=== PATIENT | female | born 1980 | race American Indian/Alaskan Native ===

== ENCOUNTER 2020-02-26 15:01 | Emergency (ER) | payer OTHER ==
--- NOTE | 2020-02-26 16:10 | EDM.PDOC ---
ED HPI GENERAL MEDICAL PROBLEM - General Chief Complaint: Genitourinary Problem Stated Complaint: GENITOURINARY PROBLEM Time Seen by Provider: 02/26/20 15:45 Source of Information: Reports: Patient History Limitations: Reports: No Limitations - History of Present Illness INITIAL COMMENTS - FREE TEXT/NARRATIVE: 39-year-old female presents to the ED with severe pruritus and whitish discharge per vagina for the last week. She has tried cdhn-xwq-qwcuwsh medications I believe Monistat 3 with no relief. She states at present it is burning very badly to void. Severe pruritus to the entire vulva with cottage cheeselike discharge per vagina. The symptoms were predated by taking a course of amoxicillin for upper respiratory tract infection. She has had a yeast infection before. She denies any odor to the discharge. She reports that she is monogamous. Onset: Gradual Onset Date: 02/18/20 Duration: Day(s):, Getting Worse Location: Reports: Other (Severe pruritus of the vulva and vagina for 1 week) Quality: Reports: Other (Of ear pruritus with discharge) Severity: Severe Improves with: Reports: None (Ieoj-vun-uzdovpi medications have not helped.) Worsens with: Reports: None Context: Denies: Activity, Exercise, Lifting, Sick Contact, Trauma, Other Associated Symptoms: Reports: Rash. Denies: No Other Symptoms, Confusion, Chest Pain, Cough, cough w sputum, Diaphoresis, Fever/Chills, Headaches, Loss of Appetite, Malaise, Nausea/Vomiting, Seizure, Shortness of Breath, Syncope, Weakness (Vulva) Treatments FEEDER ASSOCIATE: Reports: Other (see below) (Monistat 3.) Lower Abdomen Pain Score (Numeric/FACES): 3 - Related Data Allergies Allergy/AdvReac Type Severity Reaction Status Date / Time No Known Allergies Allergy Verified 02/26/20 15:17 Home Meds: Home Meds Fluconazole [Diflucan] 150 mg PO ASDIRECTED #2 tablet 02/26/20 [Rx] Past Medical History - Infectious Disease History Infectious Disease History: Reports: Chicken Pox - Past Surgical History GI Surgical History: Reports: Cholecystectomy Social & Family History - Family History Family Medical History: Noncontributory - Tobacco Use Smoking Status *Q: Never Smoker - Caffeine Use Caffeine Use: Reports: Soda - Recreational Drug Use Recreational Drug Use: No - Living Situation & Occupation Living situation: Reports: Occupation: Unemployed ED ROS GENERAL - Review of Systems Review Of Systems: See Below Constitutional: Reports: Fatigue (From not sleeping well.). Denies: Fever, Chills, Malaise, Weakness, Weight Loss HEENT: Reports: No Symptoms Respiratory: Reports: No Symptoms Cardiovascular: Reports: No Symptoms Endocrine: Reports: Fatigue GI/Abdominal: Reports: No Symptoms : Reports: Other (Of your pruritus of the entire vulva and vagina with cottage cheese whitish discharge.) Musculoskeletal: Reports: No Symptoms Skin: Reports: No Symptoms Neurological: Reports: No Symptoms ED EXAM, RENAL/ - Physical Exam Exam: See Below Exam Limited By: No Limitations General Appearance: Alert, WD/WN, Moderate Distress, Other (Female) Exam: Other (Examination of the vulva shows that she has it caked with Desitin cream and the tissues are stuck together. There is no redness there are no ulcerations to suggest herpes simplex. There is no significant obvious discharge per vagina. It was impossible to identify white discharge as the Desitin was in the vagina as well as on the vulva.) Extremities: Normal Inspection, Normal Range of Motion, Non-Tender, No Pedal Edema Neurological: Alert, Oriented, CN II-XII Intact, Normal Cognition Psychiatric: Normal Affect, Normal Mood Skin Exam: Warm, Dry, Intact, Normal Color. No: No Rash Course - Vital Signs Last Recorded V/S: Last Vital Signs Temp 36.1 C 02/26/20 15:14 Pulse 65 02/26/20 15:14 Resp 19 02/26/20 15:14 BP 126/80 02/26/20 15:14 Pulse Ox 98 02/26/20 15:14 - Radiology Interpretation Free Text/Narrative:: 39-year-old female presents to the ED with severe pruritus of the vulva stating that there is been whitish cottage cheese discharge off and on for the last week. She tried eqbb-bgm-xnunwli medications I believe Monistat 3 without any relief. At present she has Desitin cream applied to the entire vulva and vagina to help with the itch. I could not identify on examination that there was a definitive candidiasis but by history this is most likely. It predates a 10-day course of amoxicillin for upper respiratory tract infection. She will be placed on Diflucan 150 mg now and repeat in 1 week. Advised her to purchase some Lamisil cream and applied to the vulva and vagina which may give her a li ttle faster relief and soothe the area. Follow-up if not improved in 3 days to 4 days time Departure - Departure Time of Disposition: 16:07 Disposition: Home, Self-Care 01 Condition: Fair Clinical Impression: Vaginal candidiasis - Discharge Information *PRESCRIPTION DRUG MONITORING PROGRAM REVIEWED*: Not Applicable *COPY OF PRESCRIPTION DRUG MONITORING REPORT IN PATIENT JUNI: Not Applicable Prescriptions: Fluconazole [Diflucan] 150 mg PO ASDIRECTED #2 tablet Instructions: Vaginal Yeast Infection, Adult Referrals: PCP,None [Primary Care Provider] - Forms: ED Department Discharge Additional Instructions: Evaluation in the emergency room today in regards to vaginal candidiasis with extreme itch and burn particularly worsened by voiding. This seems to have developed after taking a course of amoxicillin antibiotics. Uvqg-ktu-twqgxsq treatment has failed to resolve the situation. Suggest treatment with Diflucan tablet 150 mg today and repeat in 1 week's time. Suggest purchasing some Lamisil cream which is vldd-qaf-eyogvrw and applying to the affected areas twice daily until better. You should experience marked relief of discomfort within the next 36 to 48 hours. Sepsis Event Note (ED) - Evaluation Sepsis Screening Result: No Definite Risk - Focused Exam Vital Signs: Vital Signs Temp Pulse Resp BP Pulse Ox 02/26/20 15:14 36.1 C 65 19 126/80 98
== END 2020-02-26 16:30 | disposition home or self-care (01) ==
LOC: JD.ED 15:01
DX: B37.3 Candidiasis of vulva and vagina (principal)
CPT/HCPCS: 99283